=== PATIENT | female | born 1980 | race Caucasian/White ===

== ENCOUNTER 2018-05-01 16:15 | Outpatient (RCR) | payer OTHER | END 2018-05-27 | disposition home or self-care (01) | LOC: WSPT | DX: O26.893 Other specified pregnancy related conditions, third trimester (principal); M25.552 Pain in left hip; M25.551 Pain in right hip; Z3A.29 29 weeks gestation of pregnancy | CPT/HCPCS: G8978-GP; G8979-GP ==

== ENCOUNTER → 2018-10-08 | Outpatient (CLI) | payer OTHER | LOC: COL.RAD 14:00 | DX: S73.192A Other sprain of left hip, initial encounter (principal) | CPT/HCPCS: A9585; J3301; Q9967 ==